=== PATIENT | male | born 1950 | race Caucasian/White ===

== ENCOUNTER 2024-10-02 17:14 | Emergency (ER) | payer MEDICARE, OTHER ==
[~2024-10-02] VITALS: Ht 175.2 cm; Wt 81.6 kg
[2024-10-02] MEDS ORDERED: FAMOTIDINE 50 ML IV ONE (17:45)
[2024-10-02] MEDS ORDERED: diphenhydrAMINE hydrochloride 50 MG/ML VIAL IV ONE (17:45)
[2024-10-02] MEDS ORDERED: PREDNISONE20 M1 PO (19:03)
== END 2024-10-02 19:36 | disposition home or self-care (01) ==
LOC: ED 17:14
DX: T78.49XA Other allergy, initial encounter (principal); L29.9 Pruritus, unspecified; R22.0 Localized swelling, mass and lump, head; Z91.041 Radiographic dye allergy status; X58.XXXA Exposure to other specified factors, initial encounter